=== PATIENT | female | born 1950 | race Caucasian/White ===

== ENCOUNTER 2020-05-01 19:34 | Emergency (ER) | payer OTHER ==
[~2020-05-01] VITALS: Ht 160 cm; Wt 45.8 kg
[2020-05-01 19:57] VITALS: BP 155/78
--- NOTE | 2020-05-01 20:36 | ER.PDOC ---
General Chief Complaint: Flank Pain Stated Complaint: SOB Time seen by MD: 20:35 Source: patient Exam Limitations: no limitations History of Present Illness Initial Comments patient c/o bilateral flank pain and dysuria onset this afternoon Timing/Duration: this afternoon Severity/Quality: mild, moderate Sexual [place] History: not active Associated Symptoms: denies symptoms Prior symptoms/Treatment: Similar symptoms previous Allergies: Coded Allergies: Penicillins (Verified Allergy, Unknown, Hives, 05/01/20) Sulfa (Sulfonamide Antibiotics) (Verified Allergy, Unknown, 05/01/20) codeine (Verified Allergy, Unknown, 05/01/20) Past Medical History Medical History: asthma, COPD, hypertension Surgical History: appendectomy, cholecystectomy, hysterectomy Family History Significant Family History: no pertinent family hx Social History Smoking: cigarettes Alcohol Use: none Drug Use: none Review of Systems Constitutional: denies no symptoms reported, denies see HPI, denies chills, denies diaphoresis, denies fever, denies malaise, denies weakness, denies other EENTM: denies no symptoms reported, denies see HPI, denies eye pain, denies blurred vision, denies tearing, denies double vision, denies ear pain, denies ear discharge, denies nose pain, denies nose congestion, denies throat pain, denies throat swelling, denies mouth pain, denies mouth swelling, denies other Respiratory: denies no symptoms reported, denies see HPI, denies cough, denies orthopnea, denies shortness of breath, denies stridor, denies wheezing, denies other Cardiovascular: denies no symptoms reported, denies see HPI, denies chest pain, denies edema, denies palpitations, denies syncope, denies other Gastrointestinal: denies no symptoms reported, denies see HPI, denies abdominal pain, denies constipation, denies diarrhea, denies nausea, denies vomiting, denies other Genitourinary: dysuria, flank pain Musculoskeletal: denies no symptoms reported, denies see HPI, denies back pain, denies gout, denies joint pain, denies joint swelling, denies muscle pain, denies muscle stiffness, denies neck pain, denies other Skin: denies no symptoms reported, denies see HPI, denies change in color, den ies change in hair/nails, denies dryness, denies lesions, denies lumps, denies rash, denies other All Other Systems: Reviewed and Negative Physical Exam General Appearance: No Apparent Distress, Thin EENT: eyes nml inspection, nml ENT inspection Neck: nml inspection, non-tender Cardiovascular/Respiratory: Regular Rate, Rhythm, Normal Breath Sounds, No Respiratory Distress Abdomen: Normal Bowel Sounds, Non Tender, Soft Back: CVA tenderness (bilateral) Extremities: Non-Tender, No Pedal Edema, No Calf Tenderness Neurologic/Psychiatric: Alert, Normal Mood/Affect, Oriented x 3 Skin: Normal Color, Warm/Dry Results/Orders Results/Orders Orders - LUANNE VEGA DO Urinalysis (05/01/20 20:22) Ketorolac Tromethamine (Toradol) (05/01/20 20:51) Ketorolac Tromethamine (Toradol) (05/01/20 20:55) Vital Signs Date Time Temp Pulse Resp B/P (MAP) Pulse Ox O2 Delivery O2 Flow Rate FiO2 05/01/20 20:49 91 20 131/60 (83) 94 Room Air 05/01/20 19:57 98.1 96 20 05/01/20 19:57 98.1 96 20 96 05/01/20 19:57 98.1 96 20 155/78 (103) 96 Room Air Administered Medications Medications (Trade) Dose Ordered Sig/Yessica Route PRN Reason Start Time Stop Time Status Last Admin Dose Admin Ketorolac Tromethamine (Toradol) 60 mg STAT STAT IM 05/01/20 20:51 05/01/20 20:54 DC 05/01/20 21:02 60 MG Laboratory Tests Test 05/01/20 20:30 Urine Collection Type CCMS Urine Color YELLOW (YELLOW) Urine Appearance CLEAR (CLEAR) Urine Bilirubin NEGATIVE MG/DL (NEGATIVE) Urine Ketones NEGATIVE (NEGATIVE) Urine Specific [place] 1.020 (1.005-1.035) Urine pH 7.0 (5.0-6.0) Urine Protein NEGATIVE (NEGATIVE) Urine Urobilinogen 0.2 (NEGATIVE) Urine Nitrate NEGATIVE (NEGATIVE) Urine Leukocyte Esterase NEGATIVE (NEGATIVE) Urine Blood NEGATIVE (NEGATIVE) Urine Glucose NEGATIVE (NEGATIVE) Progress Progress UA without evidence of infection. ER DEPART Departure Time of Disposition: 21:18 Disposition: 01 HOME, SELF-CARE Impression: Primary Impression: Back pain Condition: Improved Patient Instructions: Back Pain, Adult Referrals: MONICA GREENE MD (PCP) PRIMARY CARE PROVIDER Additional Instructions: Alternate Tylenol and Motrin per package instructions every 4 hours as needed for pain. You may augment pain control with muscle relaxer as prescribed. Ice 15 minutes per hour. Avoid heat. No lifting > 10 pounds. Follow up with your doctor next week for reevaluation. Return to ER if pain worsens, any difficulty breathing, or for any emergent concerns. Duration or Time Spent with Pa: 20 min Problem Qualifiers Primary Impression: Back pain Back pain location: thoracic back pain Chronicity: acute Back pain laterality: bilateral Qualified Codes: M54.6 - Pain in thoracic spine LUANNE VEGA DO May 01, 2020 20:36
[2020-05-01 20:49] VITALS: BP 131/60
[2020-05-01 20:51] LABS: APPEARANCE,URINE CLEAR (CLEAR); BILIRUBIN,URINE NEGATIVE (NEGATIVE); UA COLOR YELLOW (YELLOW)
[2020-05-01] MEDS ORDERED: TORADOL IM STA (20:51)
[2020-05-01 20:52] LABS: UROBILINOGEN,URINE 0.2 (NEGATIVE)
[2020-05-01] MEDS ORDERED: TORADOL ONE (20:55)
== END 2020-05-01 21:30 | disposition home or self-care (01) ==
LOC: ER 19:34
DX: R10.9 Unspecified abdominal pain (principal); I10 Essential (primary) hypertension; F17.210 Nicotine dependence, cigarettes, uncomplicated; J44.9 Chronic obstructive pulmonary disease, unspecified; Z79.1 Long term (current) use of non-steroidal anti-inflammatories (NSAID); Z88.2 Allergy status to sulfonamides; Z88.0 Allergy status to penicillin; Z88.5 Allergy status to narcotic agent; Z90.49 Acquired absence of other specified parts of digestive tract; Z90.710 Acquired absence of both cervix and uterus
CPT/HCPCS: 81003; 96372; 99283; J1885